=== PATIENT | male | born 1965 | race Caucasian/White ===

== ENCOUNTER 2018-01-29 07:06 | Emergency (ER) | payer OTHER ==
[2018-01-29 07:11] VITALS: RESP 18
[2018-01-29] MEDS ORDERED: SODIUM CHLORIDE 0.9% 500 ML IV STA (07:30)
--- NOTE | 2018-01-29 07:46 | ED ---
GI Bleed HPI - General Chief complaint: GI Bleed Stated complaint: bleeding Time Seen by Provider: 01/29/18 07:12 Source: patient, RN notes reviewed Mode of arrival: ambulatory Limitations: no limitations - History of Present Illness Initial comments: This a 52-year-old male presents emergency Department chief complaint of rectal bleeding. Patient states her last couple days he has noticed with Kandice states that he's had watery stools. Patient states that his initial one and his last BM were very large amount of blood. He states is most all blood. He states he does get some abdominal cramping and has a bowel movement. He states that otherwise he has no abdominal discomfort. Denies any rectal pain no hemorrhage at this time. He does have a history of hemorrhoids in which she had a hemorrhoidectomy. He states that there is no symptoms consistent with hemorrhoids this time. Denies any nausea vomiting. Patient does take aspirin daily. He states he takes it 325 aspirin. Patient denies any fever, chills. Denies any prior colonoscopy. Denies any dysuria hematuria - Related Data Home Medications Medication Instructions Recorded Confirmed Aspirin 325 mg PO ONCE 01/29/18 01/29/18 Previous Rx's Medication Instructions Recorded Hydrocortisone/Pramoxine 1 applic RECTAL BID #1 bottle 01/29/18 [Proctofoam-Hc 1%-1% Foam] Allergies Allergy/AdvReac Type Severity Reaction Status Date / Time No Known Allergies Allergy Verified 01/29/18 07:47 Review of Systems ROS Statement: Those systems with pertinent positive or pertinent negative responses have been documented in the HPI. ROS Other: All systems not noted in ROS Statement are negative. Past Medical History Past Medical History: Asthma, Hypertension History of Any Multi-Drug Resistant Organisms: None Reported Past Surgical History: Appendectomy, Ear Surgery, Orthopedic Surgery Additional Past Surgical History / Comment(s): shoulder Past Psychological History: No Psychological Hx Reported Smoking Status: Current every day smoker Past Alcohol Use History: Occasional Past Drug Use History: None Reported General Exam Limitations: no limitations General appearance: alert, in no apparent distress Head exam: Present: atraumatic, normocephalic, normal inspection ENT exam: Present: normal exam, normal oropharynx, mucous membranes moist Neck exam: Present: normal inspection. Absent: tenderness, meningismus, lymphadenopathy Respiratory exam: Present: normal lung sounds bilaterally. Absent: respiratory distress, wheezes, rales, rhonchi, stridor Cardiovascular Exam: Present: regular rate, normal rhythm, normal heart sounds. Absent: systolic murmur, diastolic murmur, rubs, gallop, clicks GI/Abdominal exam: Present: soft, normal bowel sounds. Absent: distended, tenderness, guarding, rebound, rigid Rectal exam: Present: normal inspection, normal rectal tone Back exam: Absent: CVA tenderness (R), CVA tenderness (L) Skin exam: Present: warm, dry, intact, normal color. Absent: rash Course Vital Signs 01/29/18 07:09 Temperature 97.6 F Pulse Rate 75 Respiratory 18 Rate Blood Pressure 204/114 O2 Sat by Pulse 99 Oximetry Medical Decision Making - Medical Decision Making 52-year-old male presenting return for rectal bleeding. He only has bleeding during bowel movement. He has no obvious hemorrhoids or fissure noted. This most likely is from internal hemorrhoid. Patient's lab reviewed no evidence of anemia. Patient will follow-up with GI for colonoscopy and we discharged with Proctofoam. We did discuss return parameters. - Lab Data Result diagrams: 01/29/18 07:50 01/29/18 07:50 Lab Results 01/29/18 01/29/18 01/29/18 Range/Units 07:50 07:50 07:50 WBC 6.1 (3.8-10.6) k/uL RBC 5.22 (4.30-5.90) m/uL Hgb 14.3 (13.0-17.5) gm/dL Hct 44.0 (39.0-53.0) % MCV 84.2 (80.0-100.0) fL MCH 27.4 (25.0-35.0) pg MCHC 32.5 (31.0-37.0) g/dL RDW 14.0 (11.5-15.5) % Plt Count 197 (150-450) k/uL Neutrophils % 61 % Lymphocytes % 25 % Monocytes % 7 % Eosinophils % 5 % Basophils % 1 % Neutrophils # 3.7 (1.3-7.7) k/uL Lymphocytes # 1.5 (1.0-4.8) k/uL Monocytes # 0.4 (0-1.0) k/uL Eosinophils # 0.3 (0-0.7) k/uL Basophils # 0.0 (0-0.2) k/uL APTT (22.0-30.0) sec Sodium 143 (137-145) mmol/L Potassium 4.9 (3.5-5.1) mmol/L Chloride 106 (98-107) mmol/L Carbon Dioxide 27 (22-30) mmol/L Anion Gap 10 mmol/L BUN 25 H (9-20) mg/dL Creatinine 0.92 (0.66-1.25) mg/dL Est GFR (CKD-EPI)AfAm >90 (>60 ml/min/1.73 sqM) Est GFR (CKD-EPI)NonAf >90 (>60 ml/min/1.73 sqM) Glucose 119 H (74-99) mg/dL Plasma Lactic Acid Bartolome 1.2 (0.7-2.0) mmol/L Calcium 10.1 (8.4-10.2) mg/dL Magnesium 2.1 (1.6-2.3) mg/dL Total Bilirubin 0.4 (0.2-1.3) mg/dL AST 39 (17-59) U/L ALT 65 (21-72) U/L Alkaline Phosphatase 107 (38-126) U/L Total Protein 7.0 (6.3-8.2) g/dL Albumin 4.1 (3.5-5.0) g/dL Lipase 180 (23-300) U/L 01/29/18 Range/Units 07:50 WBC (3.8-10.6) k/uL RBC (4.30-5.90) m/uL Hgb (13.0-17.5) gm/dL Hct (39.0-53.0) % MCV (80.0-100.0) fL MCH (25.0-35.0) pg MCHC (31.0-37.0) g/dL RDW (11.5-15.5) % Plt Count (150-450) k/uL Neutrophils % % Lymphocytes % % Monocytes % % Eosinophils % % Basophils % % Neutrophils # (1.3-7.7) k/uL Lymphocytes # (1.0-4.8) k/uL Monocytes # (0-1.0) k/uL Eosinophils # (0-0.7) k/uL Basophils # (0-0.2) k/uL APTT 24.2 (22.0-30.0) sec Sodium (137-145) mmol/L Potassium (3.5-5.1) mmol/L Chloride (98-107) mmol/L Carbon Dioxide (22-30) mmol/L Anion Gap mmol/L BUN (9-20) mg/dL Creatinine (0.66-1.25) mg/dL Est GFR (CKD-EPI)AfAm (>60 ml/min/1.73 sqM) Est GFR (CKD-EPI)NonAf (>60 ml/min/1.73 sqM) Glucose (74-99) mg/dL Plasma Lactic Acid Bartolome (0.7-2.0) mmol/L Calcium (8.4-10.2) mg/dL Magnesium (1.6-2.3) mg/dL Total Bilirubin (0.2-1.3) mg/dL AST (17-59) U/L ALT (21-72) U/L Alkaline Phosphatase (38-126) U/L Total Protein (6.3-8.2) g/dL Albumin (3.5-5.0) g/dL Lipase (23-300) U/L Disposition Clinical Impression: Rectal bleeding Disposition: HOME SELF-CARE Condition: Stable Instructions: Rectal Bleeding (ED) Additional Instructions: Please return to the Emergency Department if symptoms worsen or any other concerns. Prescriptions: Hydrocortisone/Pramoxine [Proctofoam-Hc 1%-1% Foam] 1 applic RECTAL BID #1 bottle Referrals: Leonard Keller DO [Primary Care Provider] - 1-2 days Seun Cullen MD [STAFF PHYSICIAN] - 1-2 days Time of Disposition: 09:42
[2018-01-29 08:07] LABS: Basophils % (A) 1 %; Eosinophils # (A) 0.3 k/uL (0-0.7); Eosinophils % (A) 5 %; HGB 14.3 gm/dL (13.0-17.5); Lymphocytes # (A) 1.5 k/uL (1.0-4.8); Lymphocytes % (A) 25 %; MCH 27.4 pg (25.0-35.0); MCHC 32.5 g/dL (31.0-37.0); MCV 84.2 fL (80.0-100.0); Mean Platelet Volume 7.1; Monocytes # (A) 0.4 k/uL (0-1.0); Monocytes % (A) 7 %; Neutrophils # (A) 3.7 k/uL (1.3-7.7); Neutrophils % (A) 61 %; Platelet Count 197 k/uL (150-450); RBC 5.22 m/uL (4.30-5.90); WBC 6.1 k/uL (3.8-10.6)
[2018-01-29 08:16] LABS: ALT 65 U/L (21-72); AST 39 U/L (17-59); Albumin 4.1 g/dL (3.5-5.0); Alkaline Phosphatase 107 U/L (38-126); Anion Gap 10 mmol/L; Blood Urea Nitrogen 25 mg/dL (9-20); Calcium 10.1 mg/dL (8.4-10.2); Carbon Dioxide 27 mmol/L (22-30); Chloride 106 mmol/L (98-107); Glucose 119 mg/dL (74-99); Lipase 180 U/L (23-300); Magnesium 2.1 mg/dL (1.6-2.3); Potassium 4.9 mmol/L (3.5-5.1); Sodium 143 mmol/L (137-145); Total Bilirubin 0.4 mg/dL (0.2-1.3)
[2018-01-29 09:54] VITALS: BP 170/98; PULSE 68; TEMP 97.7
== END 2018-01-29 09:54 | disposition home or self-care (01) ==
LOC: EC 07:06
DX: K62.5 Hemorrhage of anus and rectum (principal); F17.200 Nicotine dependence, unspecified, uncomplicated; Z79.82 Long term (current) use of aspirin; Z90.49 Acquired absence of other specified parts of digestive tract
CPT/HCPCS: 36415; 80053; 83605; 83690; 83735; 85025; 85730; 96360; 99284

== ENCOUNTER 2019-06-12 00:05 | Emergency (ER) | payer OTHER ==
[2019-06-12] MEDS ORDERED: DIPH,PERTUS(ACELL)TETVAC-LF 0.5 ML VIAL IM ONE (00:15)
[2019-06-12] MEDS ORDERED: SODIUM CHLORIDE 0.9% 1,000 ML IV STA (00:15)
[2019-06-12 00:18] LABS: Glucose,Whole Blood 167 mg/dL (75-99)
[2019-06-12 00:37] LABS: Basophils # (A) 0.1 k/uL (0-0.2); Basophils % (A) 1 %; Eosinophils # (A) 0.1 k/uL (0-0.7); Eosinophils % (A) 1 %; HCT 42.9 % (39.0-53.0); HGB 13.3 gm/dL (13.0-17.5); Lymphocytes # (A) 2.2 k/uL (1.0-4.8); Lymphocytes % (A) 28 %; MCH 26.8 pg (25.0-35.0); MCHC 31.1 g/dL (31.0-37.0); MCV 86.3 fL (80.0-100.0); Mean Platelet Volume 6.9; Monocytes # (A) 0.4 k/uL (0-1.0); Monocytes % (A) 5 %; Neutrophils # (A) 4.9 k/uL (1.3-7.7); Neutrophils % (A) 62 %; Platelet Count 275 k/uL (150-450); RBC 4.97 m/uL (4.30-5.90); WBC 7.9 k/uL (3.8-10.6)
--- NOTE | 2019-06-12 00:42 | XR ---
EXAM: XR Pelvis, 1 or 2 Views CLINICAL HISTORY: Trauma TECHNIQUE: Frontal view of the pelvis. COMPARISON: No relevant prior studies available. FINDINGS: Bones/joints: There are acute fractures of the inferior and superior pubic rami, bilaterally. No dislocation. Soft tissues: Unremarkable. IMPRESSION: There are acute fractures of the inferior and superior pubic rami, bilaterally.
--- NOTE | 2019-06-12 00:42 | XR ---
EXAM: XR Chest, 1 View CLINICAL HISTORY: Trauma TECHNIQUE: Frontal view of the chest. COMPARISON: No relevant prior studies available. FINDINGS: Lungs: Unremarkable. No consolidation. Pleural space: Small right pneumothorax comprising approximately 5-10% of the lung volume. Heart: Unremarkable. No cardiomegaly. Mediastinum: Unremarkable. Bones/joints: Acute fracture of the posterior right third, fourth, sixth, and seventh ribs. IMPRESSION: 1. Acute fracture of the posterior right third, fourth, sixth, and seventh ribs. 2. Small right pneumothorax comprising approximately 5-10% of the lung volume. <MYCVCSECTION> Critical Value Communications 06/12/19 00:48 Call Doctor Regarding Above results, called Dr. Jacobsen on 06/12 00:48 (-04:00)
[2019-06-12 00:46] LABS: INR 0.9 (<1.2); Partial Thromboplastin Time 23.7 sec (22.0-30.0); Prothrombin Time 10.1 sec (9.0-12.0)
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
[2019-06-12 00:50] LABS: African American GFR (CKD) >90 (>60 ml/min/1.73 sqM); Amylase 49 U/L (30-110); Anion Gap 11 mmol/L; Blood Urea Nitrogen 14 mg/dL (9-20); Calcium 8.6 mg/dL (8.4-10.2); Carbon Dioxide 19 mmol/L (22-30); Chloride 109 mmol/L (98-107); Glucose 166 mg/dL (74-99); Sodium 139 mmol/L (137-145); Total Bilirubin 0.7 mg/dL (0.2-1.3)
[2019-06-12] MEDS ORDERED: LIDOCAINE 1% INJ 10MG/ML (20 ML MDV) SQ ONE (00:55)
--- NOTE | 2019-06-12 01:32 | CT ---
EXAM: CT Maxillofacial Without Intravenous Contrast CLINICAL HISTORY: Trauma TECHNIQUE: Axial computed tomography images of the face without intravenous contrast. CTDI is 0.085, 0.085, 0.085, 45.2, 20.5, 9.2 mGy and DLP is 3685.2 mGy-cm. This CT exam was performed using one or more of the following dose reduction techniques: automated exposure control, adjustment of the mA and/or kV according to patient size, and/or use of iterative reconstruction technique. COMPARISON: No relevant prior studies available. FINDINGS: Bones/joints: Acute comminuted fracture of the nasal bones and frontal process of the left maxilla. Acute fracture of the nasal spine of the maxilla. Soft tissues: Moderate edema and soft tissue swelling noted about the fractures. Orbits: Unremarkable. Sinuses: Mild mucosal thickening and probable blood products within the paranasal sinuses. No air-fluid levels. IMPRESSION: 1. Acute comminuted fracture of the nasal bones and frontal process of the left maxilla. 2. Acute fracture of the nasal spine of the maxilla.
--- NOTE | 2019-06-12 01:33 | CT ---
EXAM: CT Head Without Intravenous Contrast CLINICAL HISTORY: Trauma TECHNIQUE: Axial computed tomography images of the head/brain without intravenous contrast. CTDI is 0.085, 0.085, 0.085, 45.2, 20.5, 9.2 mGy and DLP is 3685.2 mGy-cm. This CT exam was performed using one or more of the following dose reduction techniques: automated exposure control, adjustment of the mA and/or kV according to patient size, and/or use of iterative reconstruction technique. COMPARISON: No relevant prior studies available. FINDINGS: Brain: No acute infarct, hemorrhage, mass or edema. No significant white matter disease. Ventricles: Unremarkable. No ventriculomegaly. Bones/joints: No acute calvarial abnormality. Soft tissues: Please see accompanying CT scan of the face for further details. Sinuses: Unremarkable as visualized. No acute sinusitis. Mastoid air cells: Unremarkable as visualized. No mastoid effusion. IMPRESSION: No acute findings.
--- NOTE | 2019-06-12 01:38 | CT ---
EXAM: CT Thoracic Spine Without Intravenous Contrast CLINICAL HISTORY: Trauma TECHNIQUE: Axial computed tomography images of the thoracic spine without intravenous contrast. CTDI is 0.085, 0.085, 0.085, 45.2, 20.5, 9.2 mGy and DLP is 3685.2 mGy-cm. This CT exam was performed using one or more of the following dose reduction techniques: automated exposure control, adjustment of the mA and/or kV according to patient size, and/or use of iterative reconstruction technique. COMPARISON: No relevant prior studies available. FINDINGS: Vertebrae: Unremarkable. No acute fracture. Discs/spinal canal/neural foramina: No acute findings. No spinal canal stenosis. Soft tissues: Unremarkable. IMPRESSION: Normal thoracic spine CT. EXAM: CT Lumbar Spine Without Intravenous Contrast CLINICAL HISTORY: Trauma TECHNIQUE: Axial computed tomography images of the lumbar spine without intravenous contrast. CTDI is 0.085, 0.085, 0.085, 45.2, 20.5, 9.2 mGy and DLP is 3685.2 mGy-cm. This CT exam was performed using one or more of the following dose reduction techniques: automated exposure control, adjustment of the mA and/or kV according to patient size, and/or use of iterative reconstruction technique. COMPARISON: No relevant prior studies available. FINDINGS: Vertebrae: Unremarkable. No acute fracture. Discs/spinal canal/neural foramina: No acute findings. No spinal canal stenosis. Soft tissues: Unremarkable. IMPRESSION: Normal lumbar spine CT.
[2019-06-12 01:39] LABS: Alcohol 264 mg/dL; Potassium 4.6 mmol/L (3.5-5.1)
[2019-06-12 01:40] LABS: ALT 64 U/L (21-72); AST 90 U/L (17-59); Albumin 4.3 g/dL (3.5-5.0); Alkaline Phosphatase 82 U/L (38-126)
[2019-06-12 01:43] LABS: Creatine Kinase MB 3.7 ng/mL (0.0-2.4)
--- NOTE | 2019-06-12 01:45 | CT ---
EXAM: CT Chest With Intravenous Contrast CLINICAL HISTORY: Trauma TECHNIQUE: Axial computed tomography images of the chest with intravenous contrast. CTDI is 0.085, 0.085, 0.085, 45.2, 20.5, 9.2 mGy and DLP is 3685.2 mGy- cm. This CT exam was performed using one or more of the following dose reduction techniques: automated exposure control, adjustment of the mA and/or kV according to patient size, and/or use of iterative reconstruction technique. COMPARISON: No relevant prior studies available. FINDINGS: Lungs: Scattered glass opacity seen through both lungs likely representing primary contusions and aspiration pneumonitis. Pleural space: Right-sided pneumothorax comprising approximately 30- 40% lung volume. No significant effusion. Heart: Unremarkable. No cardiomegaly. No significant pericardial effusion. Bones/joints: Acute fracture the posterior left first rib, lateral left second and third rib and anterior left fourth ribs. Acute fractures of the posterolateral right third through ninth ribs. Mild subluxation of the left clavicle in relation to the acromia, which may be posttraumatic. Soft tissues: Moderate amount of gas seen within the soft tissues of the right jose-thorax. Vasculature: Unremarkable. No thoracic aortic aneurysm. Lymph nodes: Unremarkable. IMPRESSION: 1. Acute fracture the posterior left first rib, lateral left second and third rib and anterior left fourth ribs. 2. Acute fractures of the posterolateral right third through ninth ribs. 3. Right-sided pneumothorax comprising approximately 30-40% lung volume. 4. Scattered glass opacity seen through both lungs likely representing primary contusions and aspiration pneumonitis. EXAM: CT Abdomen and Pelvis With Intravenous Contrast CLINICAL HISTORY: Trauma TECHNIQUE: Axial computed tomography images of the abdomen and pelvis with intravenous contrast. CTDI is 0.085, 0.085, 0.085, 45.2, 20.5, 9.2 mGy and DLP is 3685.2 mGy-cm. This CT exam was performed using one or more of the following dose reduction techniques: automated exposure control, adjustment of the mA and/or kV according to patient size, and/or use of iterative reconstruction technique. COMPARISON: No relevant prior studies available. FINDINGS: Lung bases: Unremarkable. No mass. No consolidation. ABDOMEN: Liver: Unremarkable. Gallbladder and bile ducts: Gallstones. Pancreas: Unremarkable. Spleen: Calcified granulomata within the spleen. Adrenals: Unremarkable. Kidneys and ureters: Unremarkable. Stomach and bowel: Noninflamed colonic diverticulosis. PELVIS: Appendix: No findings to suggest acute appendicitis. Bladder: Unremarkable. Reproductive: Unremarkable as visualized. ABDOMEN and PELVIS: Intraperitoneal space: Moderate amount of blood products within the deep pelvis. Bones/joints: Acute fracture of the left sacrum with widening of the left SI joint. Acute fracture of the superior and inferior pubic rami. No dislocation. Soft tissues: Unremarkable. Vasculature: Unremarkable. No abdominal aortic aneurysm. Lymph nodes: Unremarkable. IMPRESSION: 1. Acute fracture of the left sacrum with widening of the left SI joint. 2. Acute fracture of the superior and inferior pubic rami, bilaterally. 3. Moderate amount of the blood products within the deep pelvis. <MYCVCSECTION> Critical Value [employer] 06/12/19 01:57 Verify Receipt Verified receipt with Dr. June on 06/12 01:57 (-04:00)
[2019-06-12 01:51] LABS: Troponin I 0.129 ng/mL (0.000-0.034)
--- NOTE | 2019-06-12 01:54 | XR ---
EXAM: XR Chest, 1 View CLINICAL HISTORY: Endotracheal tube placement TECHNIQUE: Frontal view of the chest. COMPARISON: No relevant prior studies available. FINDINGS: Lungs: Unremarkable. No consolidation. Pleural space: See below. Heart: Unremarkable. No cardiomegaly. Mediastinum: Unremarkable. Bones/joints: Again seen are multiple rib fractures. Please see comments CT scan of the chest. Tubes, lines and devices: Enteric tube within the thoracic inlet which appears to be in appropriate position. Enteric tube is seen extending to the stomach with tip not visualized. Right-sided chest tube with the improvement of the right-sided pneumothorax. Trace pneumothorax seen within the right lung apex. IMPRESSION: 1. Enteric tube within the thoracic inlet which appears to be in appropriate position. 2. Enteric tube is seen extending to the stomach with tip not visualized. 3. Right-sided chest tube with the improvement of the right-sided pneumothorax, which is now trace seen within the right lung apex.
[2019-06-12] MEDS ORDERED: ETOMIDATE 2 MG/ML 10 ML VIAL IVP STA (04:23)
[2019-06-12] MEDS ORDERED: SUCCINYLCHOLINE CHLORIDE VIAL 200 MG/10 ML VIAL IV STA (04:23)
[2019-06-12] MEDS ORDERED: MIDAZOLAM 1 MG/ML 5 ML VIAL IV STA (04:23)
[2019-06-12 04:34] VITALS: BP 123/73; PULSE 103; RESP 14; TEMP 97.2
== END 2019-06-12 01:45 | disposition other institution (70) ==
LOC: EC 00:05
DX: S22.43XA Multiple fractures of ribs, bilateral, initial encounter for closed fracture (principal); S32.512A Fracture of superior rim of left pubis, initial encounter for closed fracture; S32.511A Fracture of superior rim of right pubis, initial encounter for closed fracture; S32.592A Other specified fracture of left pubis, initial encounter for closed fracture; S32.591A Other specified fracture of right pubis, initial encounter for closed fracture; S32.19XA Other fracture of sacrum, initial encounter for closed fracture; S01.01XA Laceration without foreign body of scalp, initial encounter; S27.329A Contusion of lung, unspecified, initial encounter; S80.811A Abrasion, right lower leg, initial encounter; S27.0XXA Traumatic pneumothorax, initial encounter; R00.0 Tachycardia, unspecified; R04.0 Epistaxis; F17.200 Nicotine dependence, unspecified, uncomplicated; Z23 Encounter for immunization; Z79.82 Long term (current) use of aspirin; V23.4XXA Motorcycle driver injured in collision with car, pick-up truck or van in traffic accident, initial encounter; Y92.410 Unspecified street and highway as the place of occurrence of the external cause
CPT/HCPCS: 99291; 99292; 96365; 96372; 96361; 96375; 31500; 90471; 32551; 36415; 86900; 86901; 80053; 82150; 82550; 82553; 83605; 83690; 84484; 85025; 85610; 85730; 86850; 86920; 80320; 72170; 71045; 72129; 72132; 70486; 70450; 71260; 74177; 90715; C1729; J0330; J0690; J2001; J2250; Q9967

== ENCOUNTER → 2019-10-13 | Outpatient (CLI) | payer OTHER ==
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
== END | disposition home or self-care (01) ==
LOC: RADMRIMAIN 15:04
PROVIDERS: ATTEND Orthopaedic Surgery Orthopaedic Trauma
DX: M17.12 Unilateral primary osteoarthritis, left knee (principal)

== ENCOUNTER → 2019-12-12 | Outpatient (CLI) | payer OTHER ==
--- NOTE | 2019-12-12 08:26 | MR ---
EXAMINATION TYPE: MR lumbar spine wo con DATE OF EXAM: 12/12/2019 COMPARISON: CT lumbar spine June 12, 2019 HISTORY: Low Back Pain / Masoud Leg Numbness, bilateral lower extremity radiculitis, L4-S1 spondylosis a ll per order. History of surgery June 12, 2019 with numbness in both legs 6 months per patient. TECHNIQUE: Multiplanar, multisequence imaging of the lumbar spine is performed without IV contrast. FINDINGS: Sagittal images of the lumbar spine show vertebral body heights and alignment to appear sat isfactory. There is interval surgery with new artifact at L5-S1 level. Alignment is stable and satisf actory There is disc desiccation L4-L5 level with mild disc space narrowing. Bone marrow signal inten sity is preserved. Conus medullaris is normal in position and signal ending superior L1 level. Axial images show the T12-L1 and L1-L2 levels to appear within normal limits Axial images at L2-L3 and L3-L4 levels show mild facet degenerative changes bilaterally. Spinal canal is preserved. Bilateral neural foramina are patent. Axial images at L4-L5 level shows central disc protrusion with annular tear as there is increased pos terior signal and mild facet degenerative changes bilaterally. Bilateral neural foramina are patent. Axial images at L5-S1 level show artifact from left-sided fusion hardware. There is moderate facet ar thropathy bilaterally. Spinal canal is preserved. Right-sided neural foramina is patent. Left side is obscured by artifact. No suspicious incidental retroperitoneal findings are seen. IMPRESSION: New surgical change L5-S1 level with stable and satisfactory alignment. Mild multilevel d egenerative changes most prominent L4-L5 level as detailed above.
== END | disposition home or self-care (01) ==
LOC: RADMRIMAIN 07:38
PROVIDERS: ATTEND Orthopaedic Surgery Orthopaedic Surgery of the Spine
DX: M47.816 Spondylosis without myelopathy or radiculopathy, lumbar region (principal); Z98.890 Other specified postprocedural states
CPT/HCPCS: 72148

== ENCOUNTER → 2020-01-03 | Outpatient (CLI) | payer OTHER ==
--- NOTE | 2020-01-03 16:41 | CT ---
EXAMINATION TYPE: CT pelvis wo con DATE OF EXAM: 01/03/2020 COMPARISON: 06/12/2019 HISTORY: Low back pain CT DLP: 371 mGycm Examination of the solid and hollow viscera is limited given the lack of contrast. Unenhanced CT of t he pelvis was performed from the mid kidneys through the pelvis. Lack of contrast limits evaluation. FINDINGS: KIDNEYS: Partially imaged kidneys reveal No evidence for renal mass. No nephrolithiasis. No hydroneph rosis. BOWEL: Visualized bowel loops of normal caliber. Sigmoid diverticulosis without diverticulitis. No ev idence for dilated bowel or inflammatory process. Lymph nodes: No evidence for adenopathy greater natalia n 1 cm. Abdominal aorta: Atheromatous changes seen. No evidence for aneurysm. Genital organs: No significant abnormality. Other: Fixation screw traverses the left ilium into the left hemisacrum. Streak artifact limits evalu ation. Chronic fractures are seen bilaterally of the superior and inferior pubic rami. IMPRESSION: 1. Chronic pelvic fractures with postoperative changes noted. No acute fractures identified. 2. Sigmoid diverticulosis without diverticulitis.
== END | disposition home or self-care (01) ==
LOC: RADCTMAIN 11:22
PROVIDERS: ATTEND Orthopaedic Surgery Orthopaedic Surgery of the Spine
DX: S32.512A Fracture of superior rim of left pubis, initial encounter for closed fracture (principal); S32.511A Fracture of superior rim of right pubis, initial encounter for closed fracture; S32.592A Other specified fracture of left pubis, initial encounter for closed fracture; S32.591A Other specified fracture of right pubis, initial encounter for closed fracture; K57.30 Diverticulosis of large intestine without perforation or abscess without bleeding
CPT/HCPCS: 72192

== ENCOUNTER 2020-07-24 13:38 | Observation (INO) | payer OTHER ==
[2020-07-24 13:43] VITALS: RESP 18
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
[2020-07-24 14:29] LABS: Basophils % (A) 0 %; Eosinophils # (A) 0.1 k/uL (0-0.7); Eosinophils % (A) 1 %; HCT 44.9 % (39.0-53.0); HGB 14.3 gm/dL (13.0-17.5); Lymphocytes # (A) 1.1 k/uL (1.0-4.8); Lymphocytes % (A) 10 %; MCH 27.3 pg (25.0-35.0); MCHC 31.7 g/dL (31.0-37.0); Mean Platelet Volume 7.2; Monocytes # (A) 0.6 k/uL (0-1.0); Monocytes % (A) 5 %; Neutrophils # (A) 9.1 k/uL (1.3-7.7); Neutrophils % (A) 82 %; Platelet Count 223 k/uL (150-450); RBC 5.22 m/uL (4.30-5.90); RDW 13.4 % (11.5-15.5); WBC 11.1 k/uL (3.8-10.6)
[2020-07-24 14:30] LABS: Appearance,Urine Clear (Clear); Bilirubin,Urine Negative (Negative); Blood,Urine Negative (Negative); Color,Urine Yellow; Glucose,Urine (UA) Negative (Negative); Ketones,Urine Negative (Negative); Leukocyte Esterase,Urine Negative (Negative); Nitrite,Urine Negative (Negative); PH, Urine 6.5 (5.0-8.0); Protein,Urine Negative (Negative); Specific Gravity,Urine 1.017 (1.001-1.035); Urobilinogen,Urine <2.0 mg/dL (<2.0)
[2020-07-24 14:39] LABS: ALT 20 U/L (4-49); AST 28 U/L (17-59); African American GFR (CKD) >90 (>60 ml/min/1.73 sqM); Albumin 4.3 g/dL (3.5-5.0); Alkaline Phosphatase 78 U/L (38-126); Anion Gap 7 mmol/L; Blood Urea Nitrogen 17 mg/dL (9-20); Calcium 9.6 mg/dL (8.4-10.2); Carbon Dioxide 23 mmol/L (22-30); Chloride 108 mmol/L (98-107); Glucose 126 mg/dL (74-99); Non-African American GFR(CKD) >90 (>60 ml/min/1.73 sqM); Potassium 4.7 mmol/L (3.5-5.1); Sodium 138 mmol/L (137-145); Total Bilirubin 0.8 mg/dL (0.2-1.3)
[2020-07-24 14:46] LABS: Partial Thromboplastin Time 27.5 sec (22.0-30.0)
--- NOTE | 2020-07-24 15:08 | CT ---
EXAMINATION TYPE: CT brain cspine wo con DATE OF EXAM: 07/24/2020 COMPARISON: 06/12/2019 CT brain HISTORY: Syncope with fall injury CT DLP: 1365 mGycm Automated exposure control for dose reduction was used. Ventricles have normal size. There is no mass effect nor midline shift. There is no sign of intracran ial hemorrhage. Calvarium is intact. Cervical vertebra have fairly normal alignment. There is narrowing and spur formation at C5-6 and C6- 7. There is mild hypertrophic facet arthropathy in the mid and lower cervical spine. Skull base is in tact. There is no evidence of cervical spine fracture. IMPRESSION: Negative CT scan of the brain. Spondylotic changes in the cervical spine. No fracture. Brain unchanged compared to old exam.
[2020-07-24] MEDS ORDERED: ONDANSETRON 4 MG/2 ML VIAL IVP PRN (15:54)
[2020-07-24] MEDS ORDERED: HYDROmorphone 1 MG/ML 1 ML SYRINGE IVP PRN (15:54)
[2020-07-24] MEDS ORDERED: IBUPROFEN 400 MG TAB PO PRN (15:54)
[2020-07-24] MEDS ORDERED: NALOXONE 0.4 MG/ML 1 ML VIAL IV PRN (15:54)
[2020-07-24] MEDS ORDERED: ACETAMINOPHEN TAB 325 MG TAB PO PRN (15:54)
[2020-07-24] MEDS ORDERED: LORazepam 2 MG/ML INJ IV PRN (15:54)
[2020-07-24] MEDS ORDERED: EPINEPHrine 1 MG/ML 1 ML AMP IM PRN (16:13)
[2020-07-24] MEDS ORDERED: diphenhydrAMINE 50 MG/ML 1 ML VIAL IVP PRN (16:16)
[2020-07-24] MEDS: HYDROcodone/APAP 5-325MG 1 EACH TAB PO PRN ×2 (17:15→21:20)
[2020-07-24] MEDS: SODIUM CHLORIDE 0.9% 1,000 ML IV SCH (17:19)
[2020-07-25] MEDS: HYDROcodone/APAP 5-325MG 1 EACH TAB PO PRN (03:14)
[2020-07-25] MEDS: SODIUM CHLORIDE 0.9% 1,000 ML IV SCH (05:24)
[2020-07-25] MEDS ORDERED: ALBUTEROL HFA INHALER INHALATION PRN (10:24)
[2020-07-25] MEDS ORDERED: METOPROLOL SUCCINATE (ER) 50 MG TAB.ER.24H PO SCH (10:30)
[2020-07-25] MEDS ORDERED: ASPIRIN 81 MG PO SCH (10:30)
[2020-07-25 11:11] LABS: Basophils % (A) 0 %; Eosinophils # (A) 0.2 k/uL (0-0.7); Eosinophils % (A) 2 %; HCT 43.6 % (39.0-53.0); HGB 13.4 gm/dL (13.0-17.5); Lymphocytes # (A) 1.3 k/uL (1.0-4.8); Lymphocytes % (A) 21 %; MCH 26.9 pg (25.0-35.0); MCHC 30.8 g/dL (31.0-37.0); MCV 87.2 fL (80.0-100.0); Mean Platelet Volume 7.3; Monocytes # (A) 0.4 k/uL (0-1.0); Monocytes % (A) 6 %; Neutrophils # (A) 4.2 k/uL (1.3-7.7); Neutrophils % (A) 68 %; Platelet Count 203 k/uL (150-450); RDW 13.3 % (11.5-15.5); WBC 6.1 k/uL (3.8-10.6)
[2020-07-25 11:34] LABS: African American GFR (CKD) >90 (>60 ml/min/1.73 sqM); Anion Gap 5 mmol/L; Blood Urea Nitrogen 17 mg/dL (9-20); Calcium 9.4 mg/dL (8.4-10.2); Carbon Dioxide 28 mmol/L (22-30); Chloride 106 mmol/L (98-107); Glucose 98 mg/dL (74-99); Non-African American GFR(CKD) 86 (>60 ml/min/1.73 sqM); Potassium 4.5 mmol/L (3.5-5.1); Sodium 139 mmol/L (137-145)
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
[2020-07-25 16:53] VITALS: BP 136/81; PULSE 65; TEMP 98
[2020-07-25] MEDS ORDERED: SYMBICORT 80-4.5 MCG INHALER INHALATION SCH (20:00)
== END 2020-07-25 17:20 | disposition home or self-care (01) ==
LOC: EC 13:38 → 3NCARDOBS 16:19
PROVIDERS: ADMIT Internal Medicine; ATTEND Internal Medicine
DX: R55 Syncope and collapse (principal); R00.1 Bradycardia, unspecified; R07.89 Other chest pain; S00.83XA Contusion of other part of head, initial encounter; S00.81XA Abrasion of other part of head, initial encounter; J45.909 Unspecified asthma, uncomplicated; I10 Essential (primary) hypertension; F17.200 Nicotine dependence, unspecified, uncomplicated; R94.31 Abnormal electrocardiogram [ECG] [EKG]; Z86.79 Personal history of other diseases of the circulatory system; Z71.6 Tobacco abuse counseling; Z87.81 Personal history of (healed) traumatic fracture; Z79.899 Other long term (current) drug therapy; Z79.82 Long term (current) use of aspirin; Z79.891 Long term (current) use of opiate analgesic; Z79.51 Long term (current) use of inhaled steroids; Z90.49 Acquired absence of other specified parts of digestive tract; Z98.890 Other specified postprocedural states; W18.39XA Other fall on same level, initial encounter; Y93.01 Activity, walking, marching and hiking; Y92.018 Other place in single-family (private) house as the place of occurrence of the external cause
CPT/HCPCS: 93005 ×2; 99285; 36415; 80053; 80048; 84484; 85025 ×2; 85610; 85730; 81003; 72125; 70450; G0378 ×2

== ENCOUNTER → 2020-09-24 | Outpatient (CLI) | payer OTHER ==
[2020-09-24 14:06] LABS: HCT 45.4 % (39.0-53.0); HGB 14.2 gm/dL (13.0-17.5); Hypochromasia Slight; MCH 27.7 pg (25.0-35.0); MCHC 31.3 g/dL (31.0-37.0); MCV 88.5 fL (80.0-100.0); Mean Platelet Volume 7.3; Platelet Count 197 k/uL (150-450); RBC 5.13 m/uL (4.30-5.90); RDW 13.3 % (11.5-15.5); WBC 6.2 k/uL (3.8-10.6)
[2020-09-24 14:22] LABS: African American GFR (CKD) >90 (>60 ml/min/1.73 sqM); Anion Gap 7 mmol/L; Blood Urea Nitrogen 20 mg/dL (9-20); Carbon Dioxide 27 mmol/L (22-30); Chloride 107 mmol/L (98-107); Non-African American GFR(CKD) 87 (>60 ml/min/1.73 sqM); Potassium 4.4 mmol/L (3.5-5.1); Sodium 141 mmol/L (137-145)
== END | disposition home or self-care (01) ==
LOC: LABPAT 10:11
PROVIDERS: ATTEND Internal Medicine
DX: Z01.818 Encounter for other preprocedural examination (principal); R07.9 Chest pain, unspecified
CPT/HCPCS: 36415; 80051; 82565; 84520; 85027

== ENCOUNTER → 2020-09-29 | Outpatient (CLI) | payer OTHER ==
--- NOTE | 2020-09-29 11:25 | MR ---
EXAMINATION TYPE: MR tspine/lspine wo con DATE OF EXAM: 09/29/2020 COMPARISON: CT thoracic and lumbar spine June 12, 2019. MRI lumbar spine December 12, 2019 HISTORY: Lumbago, acute bilateral pain, pain in T-spine, intervertebral disc disorder TECHNIQUE: Multiplanar, multisequence imaging of the thoracic and lumbar spine are performed without IV contrast. FINDINGS: T-SPINE: FINDINGS: Localizer shows grade 1 retrolisthesis C5 on C6 and C6 on C7 with posterior disc herniation s effacing the anterior thecal sac at these levels. Spinal cord shows normal course, caliber, and sig nal as it courses the thoracic spine. Vertebral body heights and alignment are satisfactory. Multil evel disc desiccation and disc space heights are fairly well-maintained. Mild multilevel anterior spu rring is present. Bone marrow signal intensity is preserved. Review of the axial images shows tiny disc herniation centrally T1-T2 level minimally effacing the an terior thecal sac on image 18 Axial images at T10-T11 level show mild facet degenerative change and ligamentum flavum hypertrophy o n image 8 series 601. Axial images at T11-T12 level showed broad based posterior disc protrusion mildly effacing the anteri or thecal sac and mild right greater than left facet degenerative changes on axial image 5. No suspicious incidental finding in the visualized thorax or upper abdomen. IMPRESSION: Mild multilevel degenerative changes as detailed above. L-SPINE: Sagittal images of the lumbar spine show vertebral body heights and alignment to remained satisfactor y. There is redemonstration of artifact from surgical change at L5-S1 level. Alignment is stable and satisfactory . There is disc desiccation L4-L5 level with mild disc space narrowing. Additional multi level disc desiccation is present. Bone marrow signal redemonstrates generalized heterogeneity. There is Schmorl node in the superior L5 endplate redemonstrated. Conus medullaris remains normal in posit ion and signal ending superior L1 level. Axial images show the T12-L1 and L1-L2 levels to remain within normal limits Axial images at L2-L3 and L3-L4 levels show persistent mild/moderate facet degenerative changes and l igamentum flavum hypertrophy bilaterally. Spinal canal is preserved. Bilateral neural foramina are pa tent. Axial images at L4-L5 level redemonstrates mild central disc protrusion with annular tear and mild fa cet degenerative changes bilaterally. Minimal effacement anterior thecal sac. Bilateral neural forami na are patent. No significant change from prior. Axial images at L5-S1 level redemonstrates significant artifact from left-sided fusion hardware. Ther e is moderate facet arthropathy bilaterally redemonstrated. Spinal canal is preserved. Right-sided ne ural foramina is patent. Left side is obscured by artifact. No suspicious incidental retroperitoneal findings are seen. Paraspinal muscle bulk is preserved. IMPRESSION: Postsurgical change L5-S1 level redemonstrated. Stable and satisfactory alignment. Mild d egenerative changes mid to lower lumbar spine as detailed above. No significant change or interval pr ogression from recent MRI.
== END | disposition home or self-care (01) ==
LOC: RADMRIMAIN 06:04
PROVIDERS: ATTEND Specialist
DX: M47.814 Spondylosis without myelopathy or radiculopathy, thoracic region (principal); M47.816 Spondylosis without myelopathy or radiculopathy, lumbar region; Z98.890 Other specified postprocedural states
CPT/HCPCS: 72146; 72148

== ENCOUNTER 2020-10-01 06:29 | Day surgery (SDC) | payer OTHER ==
[2020-09-29 10:15] VITALS: BMI 22.8
[~2020-10-01 06:29] MED LIST: ALPRAZolam 0.25 MG TAB PO PRN; ALPRAZolam 0.5 MG TAB PO PRN; NITROGLYCERIN SL TABS 0.4 MG TAB SUBLINGUAL PRN; SODIUM CHLORIDE 0.9% 1,000 ML in EMPTY BAG 1 BAG IV ONE
[2020-10-01 07:00] VITALS: RESP 18; TEMP 98.8
[2020-10-01] MEDS ORDERED: ASPIRIN 325 MG TAB PO ONE (07:00)
[2020-10-01] MEDS ORDERED: fentaNYL (PF) 50 MCG/ML 2 ML AMP IV ONE (07:25)
[2020-10-01] MEDS ORDERED: MIDAZOLAM 2 MG/2 ML VIAL IVP ONE ×2 (07:25→07:36)
[2020-10-01] MEDS ORDERED: LIDOCAINE 1% INJ 10MG/ML (20 ML MDV) SQ ONE (07:33)
[2020-10-01] MEDS ORDERED: VERAPAMIL SYRINGE (5 MG/10 ML) INTRAARTER ONE (07:40)
[2020-10-01] MEDS ORDERED: HEPARIN SODIUM 1,000 UN/ML (10ML VL) IV ONE (07:43)
[2020-10-01] MEDS ORDERED: IOPAMIDOL-370 125ML BTL INJ ONE (07:50)
[2020-10-01] MEDS ORDERED: RX INFO: IV CONTRAST WAS GIVEN 1 EACH MISC MISCELLANE PRN (07:57)
--- NOTE | 2020-10-01 07:57 | P.CARDCATH ---
Date of Procedure: 10/01/20 Description of Procedure: PROCEDURES PERFORMED: Left heart catheterization, ultrasound-guided access, bilateral coronary angiography INDICATION: Abnormal stress test HISTORY: Patient is a pleasant 55-year-old male with history of tobacco abuse who presents with chest pain which is somewhat atypical mainly occurring at night associated with some shortness of breath with exertion. He did have a nuclear stress test which showed primarily fixed defect with some reversible inferior defect. CONSENT:I have discussed the risks, benefits and alternative therapies for the above-mentioned procedure and for both sedation/analgesia as well as necessary blood product administration, if indicated, as they pertain to this patient. The patient has indicated understanding and acceptance of the risks and procedures discussed. PROCEDURE: After the risks, benefits and alternatives of the above mentioned procedure explained in detail with the patient, informed consent was obtained. Patient was taken to the catheterization lab and prepped and draped in usual fashion. 1% lidocaine was used to anesthetize the right radial artery. A 6- Cymraes sheath was placed in the right radial artery using modified Seldinger technique. Left coronary angiography was performed with a 5-Cymraes JL 3.5 catheter and right coronary angiography was performed with a 5-Cymraes JR5 catheter in various views. A 5-Cymraes JR5 catheter was inserted into the left ventricle and pressure measurements were obtained. The right radial sheath was removed and a TR band was placed with hemostasis achieved. The patient tolerated the procedure well. Patient was transported back to the post catheterization holding area in stable condition. Conscious Sedation: Patient was monitored under the direct supervision of vision of myself for conscious sedation using 3 mg Versed and 50 mcg fentanyl for a total duration of 20 minutes HEMODYNAMICS: Aortic: 141/72 LV: 142/2, LVDP 13 SELECTIVE CORONARY ARTERIOGRAPHY: LEFT MAIN: The left main is a large caliber vessel which bifurcates into the LAD and circumflex. There is no significant stenosis. LEFT ANTERIOR DESCENDING CORONARY ARTERY: LAD is a large caliber vessel which wraps around to the apex. There is no significant stenosis. LEFT CIRCUMFLEX CORONARY ARTERY: Left circumflex is a moderate caliber vessel without significant stenosis. RIGHT CORONARY ARTERY: The right coronary artery is a large caliber vessel which gives off a PDA and PLV branch and is the dominant vessel. There is no significant stenosis. FINAL IMPRESSION: 1. Normal coronary arteries as described above. 2. Normal left-sided filling pressures. PLAN: 1. Aggressive risk factor modification per most recent ACC/AHA guidelines. 2. Follow-up in the office in 1-2 weeks. 3. Tobacco cessation. Workup of other reasons for dyspnea and chest pain.
[2020-10-01 11:37] VITALS: BP 116/65; PULSE 60
== END 2020-10-01 11:48 | disposition home or self-care (01) ==
LOC: CATHCVL 06:29
PROVIDERS: ATTEND Internal Medicine
DX: R06.02 Shortness of breath (principal); R07.89 Other chest pain; I48.0 Paroxysmal atrial fibrillation; R94.39 Abnormal result of other cardiovascular function study; R00.2 Palpitations; R55 Syncope and collapse; R42 Dizziness and giddiness; R06.00 Dyspnea, unspecified; R07.2 Precordial pain; I10 Essential (primary) hypertension; Z72.0 Tobacco use; J45.909 Unspecified asthma, uncomplicated; G62.9 Polyneuropathy, unspecified; G89.29 Other chronic pain; M54.9 Dorsalgia, unspecified; Z79.51 Long term (current) use of inhaled steroids
CPT/HCPCS: 93458; C1769; C1894; J2250; J2001; J3010; J1644; Q9967

== ENCOUNTER 2022-11-04 11:47 | Emergency (ER) | payer OTHER ==
[2022-11-04 12:27] VITALS: RESP 18; TEMP 97.6
[2022-11-04] MEDS ORDERED: DIPH,PERTUS(ACELL)TETVAC-LF 0.5 ML VIAL IM ONE (12:37)
--- NOTE | 2022-11-04 13:32 | ED ---
Wound/Laceration HPI - General Chief Complaint: Wound/Laceration Stated Complaint: L hand finger lac Time Seen by Provider: 11/04/22 12:28 Source: patient Mode of arrival: ambulatory Limitations: no limitations - History of Present Illness Initial Comments: Patient is a 57-year-old male presenting with chief complaint of laceration. Patient was working on a machine in his garage when he cut his left second digit. Patient still has full range of motion, no numbness or tingling. No weakness. Bleeding is well controlled on presentation. Patient does not know when his last tetanus shot was. - Related Data Home Medications Medication Instructions Recorded Confirmed Albuterol Sulfate [Ventolin HFA] 2 puff INHALATION RT-QID PRN 07/24/20 10/01/20 Aspirin EC [Ecotrin Low Dose] 81 mg PO DAILY 07/24/20 10/01/20 Hydrocodone/Acetaminophen [[place] 1 tab PO QID 07/24/20 10/01/20 10-325] Mometasone/Formoterol [Dulera 100 2 puff INHALATION RT-BID 07/24/20 10/01/20 Mcg-5 Mcg Inhaler] lisinopriL [Prinivil] 5 mg PO DAILY 09/29/20 10/01/20 Allergies Allergy/AdvReac Type Severity Reaction Status Date / Time No Known Allergies Allergy Verified 11/04/22 12:27 Review of Systems ROS Statement: Those systems with pertinent positive or pertinent negative responses have been documented in the HPI. ROS Other: All systems not noted in ROS Statement are negative. Past Medical History Past Medical History: Asthma, Hypertension History of Any Multi-Drug Resistant Organisms: None Reported Past Surgical History: Appendectomy, Ear Surgery, Orthopedic Surgery Additional Past Surgical History / Comment(s): shoulder, rods in pelvis Past Psychological History: No Psychological Hx Reported Smoking Status: Current every day smoker Past Alcohol Use History: None Reported Past Drug Use History: None Reported General Exam Limitations: no limitations General appearance: alert, in no apparent distress Head exam: Present: atraumatic, normocephalic, normal inspection Eye exam: Present: normal appearance Neck exam: Present: normal inspection Neurological exam: Present: alert, oriented X3, CN II-XII intact Psychiatric exam: Present: normal affect, normal mood Skin exam: Present: warm, dry, normal color. Absent: rash Expanded Type of lesion: Present: laceration (2 cm laceration to the left second digit) Course Vital Signs 11/04/22 12 12:22 14:16 Temperature 97.6 F Pulse Rate 80 78 Respiratory 18 18 Rate Blood Pressure 118/81 123/87 O2 Sat by Pulse 97 97 Oximetry Medical Decision Making - Medical Decision Making Patient is a 57-year-old male presenting with chief complaint of laceration to the second digit while working with a tool. On physical examination full sensation and range of motion are intact. X-ray shows no foreign body or fracture. Laceration is repaired by myself and patient is educated on wound care. Follow-up with PCP. Report back to ER with any new or worsening symptoms. Discussed return parameters and answered all questions. Patient conveyed verbal understanding and agreed to the plan. I discussed this case in detail with my attending Dr. Thakur Disposition Clinical Impression: Laceration Disposition: HOME SELF-CARE Condition: Good Instructions (If sedation given, give patient instructions): Care For Your Stitches (ED), Finger Laceration (ED) Additional Instructions: Follow-up with PCP. Report back to ER if any new or worsening symptoms. Keep the wound clean, dry, and covered. He may wash gently with soap and water. Monitor for signs of infection, including but not limited to redness, swelling, warmth, tenderness, discharge, fever, chills. Sutures may be removed in 10-14 days. Is patient prescribed a controlled substance at d/c from ED?: No Referrals: Leonard Keller DO [Primary Care Provider] - 1-2 days Time of Disposition: 14:03
--- NOTE | 2022-11-04 13:58 | XR ---
EXAMINATION TYPE: XR finger LT DATE OF EXAM: 11/04/2022 12:55 PM INDICATION: Patient age:Male; 57 years old; Reason for study: laceration, L 2nd digit; PHH. COMPARISON: None TECHNIQUE: Frontal, lateral and oblique views of the left second digit hand were obtained. FINDINGS: Laceration to posterior aspect of the left second digit. No evidence radiopaque foreign bod y. Normal alignment of the visualized joints. No acute osseous pathology is identified. No evidence of soft tissue swelling. IMPRESSION: 1. No acute osseous pathology. 2. Laceration without evidence of fracture or foreign body.
[2022-11-04 14:18] VITALS: BP 123/87; PULSE 78
== END 2022-11-04 14:18 | disposition home or self-care (01) ==
LOC: EC 11:47
DX: S61.211A Laceration without foreign body of left index finger without damage to nail, initial encounter (principal); J45.909 Unspecified asthma, uncomplicated; I10 Essential (primary) hypertension; F17.200 Nicotine dependence, unspecified, uncomplicated; Z79.82 Long term (current) use of aspirin; Z79.899 Other long term (current) drug therapy; W31.9XXA Contact with unspecified machinery, initial encounter
CPT/HCPCS: 90471; 90715; 99283

== ENCOUNTER → 2023-03-01 | Outpatient (CLI) | payer OTHER ==
--- NOTE | 2023-03-01 15:47 | XR ---
EXAMINATION TYPE: XR chest 2V DATE OF EXAM: 03/01/2023 COMPARISON: 06/12/2019 INDICATION: Presurgical testing TECHNIQUE: Frontal and lateral views of the chest are obtained. FINDINGS: The heart size is normal. The pulmonary vasculature is normal. The lungs are clear. IMPRESSION: 1. No acute pulmonary process.
== END | disposition home or self-care (01) ==
LOC: RADXRMAIN 13:48
PROVIDERS: ATTEND Specialist
DX: Z01.818 Encounter for other preprocedural examination (principal); M47.812 Spondylosis without myelopathy or radiculopathy, cervical region
CPT/HCPCS: 71046

== ENCOUNTER → 2023-07-06 | Outpatient (CLI) | payer OTHER ==
--- NOTE | 2023-07-06 16:33 | CT ---
EXAMINATION TYPE: CT lumbar spine wo con DATE OF EXAM: 07/06/2023 COMPARISON: 06/12/2019 HISTORY: Follow up for lumbar fusion. CT DLP: 950.2 mGycm CONTRAST: None TECHNIQUE: CT of the lumbar spine is performed on a spiral scan at 3 mm thick sections. Reconstructed images are performed in the coronal and sagittal planes. FINDINGS: T12-L1: No focal disc herniation or significant disc bulge is evident. No spinal canal stenosis or neural foraminal stenosis is present. L1-L2: No focal disc herniation or significant disc bulge is evident. No spinal canal stenosis or n eural foraminal stenosis is present L2-L3: No focal disc herniation or significant disc bulge is evident. No spinal canal stenosis or n eural foraminal stenosis is present L3-L4: Broad-based disc bulge is present with anterior thecal sac contact. No AP spinal canal stenosi s present. Neural foramen have mild narrowing. L4-L5: No focal disc herniation or significant disc bulge is evident. No spinal canal stenosis or n eural foraminal stenosis is present L5-S1: There is a disc spacer at this level. Pedicle screws are present at L5. No spinal canal stenos is is present with severe bilateral foraminal stenosis is present. This appears stable from compariso n Vertebral alignment appears normal. IMPRESSION: 1. Postsurgical changes L5-S1. 2. Persistent severe foraminal stenosis L5-S1
== END | disposition home or self-care (01) ==
LOC: RADCTMAIN 08:13
PROVIDERS: ATTEND Specialist
DX: M43.27 Fusion of spine, lumbosacral region (principal); M99.73 Connective tissue and disc stenosis of intervertebral foramina of lumbar region
CPT/HCPCS: 72131

== ENCOUNTER → 2023-09-24 | Outpatient (CLI) | payer OTHER ==
--- NOTE | 2023-09-24 14:39 | XR ---
EXAMINATION TYPE: XR chest 2V DATE OF EXAM: 09/24/2023 COMPARISON: 03/01/2023 INDICATION: Presurgical testing cervical fusion TECHNIQUE: Frontal and lateral views of the chest are obtained. FINDINGS: The heart size is normal. The pulmonary vasculature is normal. The lungs are clear. IMPRESSION: 1. No acute pulmonary process.
== END | disposition home or self-care (01) ==
LOC: RADXRMAIN 13:34
PROVIDERS: ATTEND Specialist
DX: Z01.818 Encounter for other preprocedural examination (principal); M50.222 Other cervical disc displacement at C5-C6 level; M50.223 Other cervical disc displacement at C6-C7 level
CPT/HCPCS: 71046

== ENCOUNTER → 2023-09-25 | Outpatient (CLI) | payer MEDICARE, OTHER | END | disposition home or self-care (01) | LOC: LABWHC1 06:53 | PROVIDERS: ATTEND Specialist | DX: M50.222 Other cervical disc displacement at C5-C6 level (principal); M50.223 Other cervical disc displacement at C6-C7 level | CPT/HCPCS: 87070 ==

== ENCOUNTER → 2023-09-28 | Outpatient (CLI) | payer MEDICARE, OTHER | END | disposition home or self-care (01) | LOC: LABWHC1 15:24 | PROVIDERS: ATTEND Specialist | DX: M50.222 Other cervical disc displacement at C5-C6 level (principal); M50.223 Other cervical disc displacement at C6-C7 level | CPT/HCPCS: 36415; 85730 ==

== ENCOUNTER 2023-10-23 07:58 | Emergency (ER) | payer MEDICARE, OTHER ==
[2023-10-23 08:38] VITALS: RESP 16
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
--- NOTE | 2023-10-23 09:43 | XR ---
EXAMINATION TYPE: XR shoulder complete 3 views LT DATE OF EXAM: 10/23/2023 Comparison: 07/02/2016 Clinical History: 58-year-old male pain Findings: There is superior positioning of the distal clavicle relative to the acromion and widening of the cor acoclavicular distance. However, no significant overlying soft tissue swelling is seen. No acute frac ture seen. Old healed fractures of the second and third left lateral ribs. Partially visualized ACDF hardware. Impression: Age indeterminate, possibly chronic grade 3 AC joint separation. Clinically correlate. Old healed fra ctures of the left lateral second and third ribs. No acute fracture seen.
[2023-10-23 10:38] VITALS: BP 150/72; PULSE 78; TEMP 98
== END 2023-10-23 10:17 | disposition home or self-care (01) ==
LOC: EC 07:58
DX: M19.012 Primary osteoarthritis, left shoulder (principal); S43.52XA Sprain of left acromioclavicular joint, initial encounter; I10 Essential (primary) hypertension; J45.909 Unspecified asthma, uncomplicated; F17.200 Nicotine dependence, unspecified, uncomplicated; Z79.899 Other long term (current) drug therapy; Z79.82 Long term (current) use of aspirin
CPT/HCPCS: 99282; 99283

== ENCOUNTER → 2024-01-14 | Outpatient (CLI) | payer OTHER ==
--- NOTE | 2024-01-14 09:10 | CT ---
EXAMINATION TYPE: CT cervical spine wo con DATE OF EXAM: 01/14/2024 COMPARISON: None HISTORY: 58-year-old male M43.22, fusion cervical region, pinch nerve in c5-c6 TECHNIQUE: Contiguous axial scanning of the cervical spine without IV contrast. Coronal and sagittal reconstructions performed. CT DLP: 659 mGycm Automated exposure control for dose reduction was used. FINDINGS: Biapical pleural parenchymal scarring and some and emphysematous change in the visualized upper lungs . No craniocervical junction abnormality, predental space widening, or prevertebral soft tissue swellin g. There is preserved alignment of the cervical spine. Patient status post C5-C7 ACDF. There is some underlying congenital spinal canal narrowing especially in the lower cervical spine with AP canal dimension of 9 mm. Artifact from the patient's shoulders a nd orthopedic hardware limits assessment of the spinal canal in the lower cervical spine. No large fo paul disc herniation seen in the upper mid cervical spine. Scattered facet and uncovertebral joint arthropathy is present. At C3-C4, mild bilateral neural foraminal narrowing. At C5-C6, moderate bilateral neural foraminal stenosis. At C6/C7, moderate to severe left and moderate bilateral neuroforaminal stenosis. No acute fracture of the cervical spine. IMPRESSION: 1. STATUS POST C5-C7 ACDF. 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 2. SOME UNDERLYING UNCOVERTEBRAL JOINT AND FACET ARTHROPATHY. MODERATE BILATERAL NEURAL FORAMINAL BERHANE NOSES AT C5-C6 AND MODERATE TO SEVERE ON BOTH SIDES AT C6-C7.
== END | disposition home or self-care (01) ==
LOC: RADCTMAIN 08:47
PROVIDERS: ATTEND Nurse Practitioner
DX: M43.22 Fusion of spine, cervical region (principal); M48.02 Spinal stenosis, cervical region; M47.22 Other spondylosis with radiculopathy, cervical region; M99.71 Connective tissue and disc stenosis of intervertebral foramina of cervical region; Z98.1 Arthrodesis status
CPT/HCPCS: 72125

== ENCOUNTER 2024-12-04 07:21 | Day surgery (SDC) | payer MEDICARE, OTHER ==
[2024-12-01 15:10] VITALS: BMI 24.3
[2024-12-04] MEDS: IV FLUID CONTINUATION 1,000 ML IV ONE (07:45)
[2024-12-04 08:04] VITALS: RESP 16; TEMP 97.7
[2024-12-04] MEDS ORDERED: PROPOFOL 10 MG/ML 20 ML VIAL IV ONE (08:24)
--- NOTE | 2024-12-04 08:42 | P.PCN ---
Date of Procedure: 12/04/24 Preoperative Diagnosis: Screening for colon cancer Postoperative Diagnosis: Internal hemorrhoids diverticulosis Procedure(s) Performed: Colonoscopy Anesthesia: MAC Surgeon: Aren Sales Pathology: none sent Condition: stable Disposition: same day Indications for Procedure: 59-year-old male presents today for screening colonoscopy. Denies any blood in her stool. Risks, benefits and alternatives were provided to the patient. All questions answered prior to attending the endoscopy suite. Operative Findings: Diverticulosis Internal hemorrhoid Description of Procedure: The patient was brought to the endoscopy suite and placed in left lateral d ecubitus position and adequate sedation was achieved using conscious sedation. Digital rectal exam was performed and mild internal hemorrhoids were palpated. An endoscope was then placed in the rectum and advanced to the cecum as identified by landmarks including the appendiceal orifice and the ileocecal valve. The prep was good. The colonoscope was then slowly withdrawn, examining for any mucosal abnormalities. The cecum, ascending, transverse, descending and sigmoid colon were visualized adequately. There were no large neoplastic lesions noted throughout the colon. Mild amount of diverticulosis is noted in the sigmoid colon. No obvious polyps were noted. Hemostasis was maintained. Retroflexion was performed in the rectum and internal hemorrhoids. Excess air was removed, the colonoscope withdrawn and the procedure terminated. The patient was then transferred to the recovery unit in stable condition. Repeat colonoscopy should be performed in 7-10 years.
[2024-12-04 09:01] VITALS: BP 125/74; PULSE 69
== END 2024-12-04 09:15 | disposition home or self-care (01) ==
LOC: ORWHC2ENDO 07:21
PROVIDERS: ATTEND Surgery
DX: Z12.11 Encounter for screening for malignant neoplasm of colon (principal); K64.8 Other hemorrhoids; K57.30 Diverticulosis of large intestine without perforation or abscess without bleeding; I10 Essential (primary) hypertension; I48.91 Unspecified atrial fibrillation; J44.89 Other specified chronic obstructive pulmonary disease; F17.200 Nicotine dependence, unspecified, uncomplicated; Z79.51 Long term (current) use of inhaled steroids; Z79.82 Long term (current) use of aspirin; Z79.899 Other long term (current) drug therapy
CPT/HCPCS: J2704; G0121; 45378